=== PATIENT | female | born 1945 | race Hispanic/Latino ===

== ENCOUNTER 2017-04-27 15:26 | Emergency (ER) | payer MEDICARE, OTHER ==
[2017-04-27 15:35] VITALS: BP 156/84; RESP 16; TEMP 97.8; O2SAT 100
[2017-04-27] MEDS ORDERED: Sodium Chloride 0.9% 1,000 ML IV STA (16:41)
--- NOTE | 2017-04-27 16:57 | ED PDOC ---
HPI:Nausea, Vomiting, Diarrhea Time Seen by Provider: 04/27/17 15:44 Chief Complaint (Nursing): Abdominal Pain Chief Complaint (Provider): Vomiting, diarrhea History Per: Patient History/Exam Limitations: no limitations Onset/Duration Of Symptoms: Hrs (x3) Current Symptoms Are (Timing): Still Present Associated Symptoms: Nausea, Vomiting, Diarrhea. denies: Fever, Chest Pain Additional Complaint(s): Marleny Reyna is a 71 year old female with a past medical history of HTN, and borderline diabetes, who is presenting to the ER with complains of non-bloody vomit with associated mild watery diarrhea and dizziness, onset 3 hours ago. Patient states that she started feeling dizzy and vomited after eating spicy salsa earlier today. She denies any abdominal pain, fevers, chest pain, shortness of breath, headaches, weakness, and numbness. 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 Buckley. She offers no other medical complaints at this time. PMD: Teofilo Ardon Past Medical History Reviewed: Historical Data, Nursing Documentation, Vital Signs Vital Signs: Last Vital Signs Temp 97.8 F 04/27/17 15:30 Pulse 70 04/27/17 15:30 Resp 16 04/27/17 15:30 BP 156/84 H 04/27/17 15:30 Pulse Ox 100 04/27/17 15:30 - Medical History PMH: Asthma, HTN, Hypercholesterolemia - Surgical History Surgical History: Cholecystectomy - Family History Family History: States: Unknown Family Hx - Home Medications Home Medications: Ambulatory Orders Medication Instructions Recorded Albuterol HFA [Ventolin HFA 90 2 puff IH [id number] PRN #0 puff 03/15/15 mcg/actuation (8 g)] Amlodipine Besylate [Norvasc] 5 mg PO DAILY 03/15/15 Atenolol [Tenormin] 50 mg PO DAILY 03/15/15 Azithromycin [Zithromax Z-Patricio] 250 mg PO DAILY #6 tab 03/15/15 Benzonatate [Tessalon Perles] 100 mg PO Q8 #30 cap 03/15/15 Enalapril/Hydrochlorothiazide 1 tab PO DAILY 03/15/15 [Enalapril-Hctz 10-25 mg Tablet] Ondansetron ODT [Zofran ODT] 4 mg PO Q8 PRN #12 odt 04/27/17 - Allergies Allergies/Adverse Reactions: Allergies Allergy/AdvReac Type Severity Reaction Status Date / Time No Known Allergies Allergy Verified 03/15/15 11:36 Review of Systems ROS Statement: Except As Marked, All Systems Reviewed And Found Negative Constitutional: Negative for: Fever, Weakness Cardiovascular: Negative for: Chest Pain Respiratory: Negative for: Shortness of Breath Gastrointestinal: Positive for: Nausea, Vomiting, Diarrhea. Negative for: Abdominal Pain Neurological: Positive for: Dizziness. Negative for: Weakness, Numbness Physical Exam - Reviewed Nursing Documentation Reviewed: Yes Vital Signs Reviewed: Yes - Physical Exam Appears: Positive for: Non-toxic, No Acute Distress, Uncomfortable Head Exam: Positive for: ATRAUMATIC, NORMAL INSPECTION, NORMOCEPHALIC Skin: Positive for: Normal Color, Warm, Dry Eye Exam: Positive for: Normal appearance, EOMI, PERRL. Negative for: Nystagmus Neck: Positive for: Normal, Painless ROM, Supple Cardiovascular/Chest: Positive for: Regular Rate, Rhythm. Negative for: Murmur Respiratory: Positive for: Normal Breath Sounds. Negative for: Respiratory Distress Gastrointestinal/Abdominal: Positive for: Normal Exam, Soft. Negative for: Tenderness, Guarding, Rebound Back: Positive for: Normal Inspection. Negative for: L CVA Tenderness, R CVA Tenderness, Vertebral Tenderness Extremity: Positive for: Normal ROM. Negative for: Pedal Edema, Deformity Neurologic/Psych: Positive for: Alert, Oriented, Gait (steady). Negative for: Motor/Sensory Deficits - Laboratory Results Result Diagrams: 04/27/17 17:35 04/27/17 17:35 - ECG ECG: Positive for: Interpreted By Me, Viewed By Me ECG Rhythm: Positive for: Normal QRS, Normal ST Segment, Sinus Rhythm. Negative for: ST/T Changes Rate: 65 O2 Sat by Pulse Oximetry: 100 (RA) Pulse Ox Interpretation: Normal Medical Decision Making Medical Decision Making: Time: 16:41 Impression: Vomiting, diarrhea, and dizziness Differentials: gastroenteritis, vertigo, cardiac arrhythmia, Acute coronary syndrome, acute pancreatitis Plan: --EKG --CMP --Lipase --Troponin --ED Urine Dipstick --CBC --ANtivert 25 mg PO --IV Fluids --Zofran 4 mg IV Time: 17:40 CT HEAD FINDINGS: HEMORRHAGE: No intracranial hemorrhage. BRAIN: No mass effect or edema. No atrophy or chronic microvascular ischemic changes. VENTRICLES: Unremarkable. No hydrocephalus. CALVARIUM: Unremarkable. PARANASAL SINUSES: Unremarkable as visualized. No significant inflammatory changes. MASTOID AIR CELLS: Unremarkable as visualized. No inflammatory changes. OTHER FINDINGS: None. IMPRESSION: No acute intracranial abnormalities. No significant findings to account for the clinical presentation. Time: 18:35 Upon reevaluation, patient feeling significant improved and no longer dizzy. No abdominal pain. Pending labs and urine. Patient ambulating with steady gait and not dizzy. Scribe Attestation: Documented by Karie Ray, acting as a scribe for Jaki Eubanks MD. Provider Scribe Attestation: All medical record entries made by the Scribe were at my direction and personally dictated by me. I have reviewed the chart and agree that the record accurately reflects my personal performance of the history, physical exam, medical decision making, and the department course for this patient. I have also personally directed, reviewed, and agree with the discharge instructions and disposition. Disposition - Clinical Impression Clinical Impression: Vomiting and diarrhea, Vertigo - Patient ED Disposition Is Patient to be Admitted: No Doctor Will See Patient In The: Office Counseled Patient/Family Regarding: Studies Performed, Diagnosis, Need For Followup - Disposition Referrals: Teofilo Ardon MD [Family Provider] - Disposition: Routine/Home Disposition Time: 20:30 Condition: GOOD Additional Instructions: Return for worsening. Follow up with your PCP in 2-3 days. Prescriptions: Ondansetron ODT [Zofran ODT] 4 mg PO Q8 PRN #12 odt PRN Reason: Nausea/Vomiting Instructions: Nausea and Vomiting, Adult (DC), Vertigo (a Type of Dizziness)
--- NOTE | 2017-04-27 17:42 | CT ---
PROCEDURE: CT HEAD WITHOUT CONTRAST. HISTORY: vertigo COMPARISON: None available. TECHNIQUE: Axial computed tomography images were obtained through the head/brain without intravenous contrast. Radiation dose: Total exam DLP = 833.80 mGy-cm. This CT exam was performed using one or more of the following dose reduction techniques: Automated exposure control, adjustment of the mA and/or kV according to patient size, and/or use of iterative reconstruction technique. FINDINGS: HEMORRHAGE: No intracranial hemorrhage. BRAIN: No mass effect or edema. No atrophy or chronic microvascular ischemic changes. VENTRICLES: Unremarkable. No hydrocephalus. CALVARIUM: Unremarkable. PARANASAL SINUSES: Unremarkable as visualized. No significant inflammatory changes. MASTOID AIR CELLS: Unremarkable as visualized. No inflammatory changes. OTHER FINDINGS: None. IMPRESSION: No acute intracranial abnormalities. No significant findings to account for the clinical presentation.
[2017-04-27 18:18] LABS: BASO % 0.3 % (0.0-2.0); EOS % 0.2 % (0.0-4.0); HEMOGLOBIN 14.2 g/dL (12.0-16.0); LYMPH # 1.5 K/uL (1.0-4.3); MEAN CELL VOLUME 85.7 fl (81.0-99.0); MEAN CORPUSCULAR HGB CONC 32.7 g/dL (33.0-37.0); MEAN PLATELET VOLUME 8.4 fl (7.2-11.7); MONO # 0.4 K/uL (0.0-0.8); MONO % 2.6 % (0.0-10.0); NEUT # 11.9 K/uL (1.8-7.0); NEUT % 85.9 % (50.0-75.0); NRBC % 0.2 % (0.0-0.0); RBC 5.05 Mil/uL (3.80-5.20); RED CELL DISTRIBUTION WIDTH 13.2 % (11.5-14.5); WHITE BLOOD COUNT 13.9 K/uL (4.8-10.8)
[2017-04-27 18:48] VITALS: PULSE 65
[2017-04-27 19:01] LABS: ALB/GLOB RATIO 1.3 (1.0-2.1); ALBUMIN 4.5 g/dL (3.5-5.0); AST/SGOT 37 U/L (14-36); BLOOD UREA NITROGEN 19 mg/dl (7-17); CALCIUM 10.3 mg/dL (8.4-10.2); GFR AFRICAN-AMERICAN > 60; GFR NON-AFRICAN AMERICAN > 60
[2017-04-27 20:06] LABS: ALT/SGPT 37 U/L (9-52); LIPASE 71 U/L (23-300)
--- NOTE | 2017-04-28 11:53 | CARD ---
APPROVED REPORT EKG Measurement Heart [id number] <Conclusion> Normal sinus rhythm Normal ECG
== END 2017-04-27 20:52 | disposition home or self-care (01) ==
LOC: H.ER 15:26
DX: R11.10 Vomiting, unspecified (principal); R19.7 Diarrhea, unspecified; R42 Dizziness and giddiness; E78.00 Pure hypercholesterolemia, unspecified; I10 Essential (primary) hypertension; J45.909 Unspecified asthma, uncomplicated
CPT/HCPCS: 70450; 80053; 81025; 83690; 84484; 85025; 93005; 96374; 99284; J2405; J7040